=== PATIENT | male | born 1990 | race Caucasian/White ===

== ENCOUNTER 2025-02-20 16:05 | Day surgery (SDC) | payer BC, SELFPAY ==
[2025-02-20] VITALS (9 sets, daily range): BP systolic 136–158; BP diastolic 72–99; BMI 29.7
[2025-02-20 10:36] LABS: % Basophils 0.7 % (0-2); % Eosinophils 0.7 % (0-6); % Immature Granulocytes 0.6 % (0-0.5); % Lymphocytes 19.1 % (20.5-51.1); % Monocytes 10.1 % (1.7-9.3); % Neutrophils 68.8 % (42.2-75.2); Absolute Basophils 0.1 10^3/uL (0-0.2); Absolute Eosinophils 0.1 10^3/uL (0-0.7); Absolute Immature Granulocytes 0.1 10^3/uL (0-0.05); Absolute Lymphocytes 2.2 10^3/uL (1.2-3.4); Absolute Monocytes 1.2 10^3/uL (0.1-0.6); Absolute Neutrophils 7.8 10^3/uL (1.4-6.5); Hemoglobin 14.3 g/dL (13.0-18.0); Mean Corpuscular Hgb 30.4 pg (27.0-31.0); Mean Corpuscular Volume 89.2 fL (80.0-94.0); Mean Platelet Volume 9.8 fL (7.4-10.4); Nucleated Red Blood Cells % 0 % (-); Platelet Count 252 10^3/uL (130-400); Red Blood Cell Count 4.71 10^6/uL (4.70-6.10); Red Cell Dist. Width 11.8 % (11.5-14.5); White Blood Cell Count 11.4 10^3/uL (4.8-10.8)
[2025-02-20 10:58] LABS: ALT (SGPT) 69 U/L (0-50); AST (SGOT) 40 U/L (17-59); Albumin 5.1 g/dl (3.5-5.0); Alkaline Phosphatase 49 U/L (38-126); Blood Urea Nitrogen 11 mg/dl (9-20); Calcium 10.2 mg/dl (8.4-10.2); Carbon Dioxide 27 mmol/L (22-30); Chloride 104 mmol/L (98-107); Glucose 108 mg/dl (70-99); Lipase 76 U/L (23-300); Potassium 4.3 mmol/L (3.5-5.1); Sodium 139 mmol/L (135-145); Total Bilirubin 0.9 mg/dl (0.2-1.3); Total Protein 8.2 g/dl (6.3-8.2); eGFR > 60.00
--- NOTE | 2025-02-20 11:53 | ED.GENMED ---
History of Present Illness
General
Chief Complaint: Abdominal Pain
Source: patient
Exam Limitations: none
Time Seen by Provider: 02/20/25 11:43
History of Present Illness
History of Present Illness:
34yoM with a history of hypertension, IBS, and asthma presenting for evaluation of abdominal pain. Symptoms initially began yesterday. Pain started in the periumbilical region and has since migrated to the right lower quadrant. Pain became severe
overnight. Pain is worse with movement and palpation. He has not taken anything [id number] for his symptoms. He is otherwise asymptomatic and denies any fevers, nausea, vomiting, diarrhea, constipation, dysuria, testicular pain. No
previous abdominal surgeries.
Past History
Past History
ED Past Medical History: Psychiatric
ED Past Surgical History: None
Social History
Tobacco: Smoker
Alcohol: Daily
Drug: None
Employment: Employed
Phy Exam
General Physical Exam
General Presentation: well appearing and no apparent distress
General Skin: warm and dry
General Habitus: normal
General Mental: alert
ENT Exam
ENT Exam: normocephalic
Pulmonary Exam
Pulmonary Exam: no respiratory distress
Gastrointestinal Exam
Gastrointestinal Exam: normal bowel sounds, soft, non distended and other (+Focal tenderness in RLQ. Abdomen soft, non-distended. No rebound or guarding.)
Neurological Exam
Neurological Exam: alert
[place] Coma Scale
Eye Opening: Spontaneous
Verbal Response: Oriented
Motor Response: Obeys Commands
GCS Total Score: 15
Skin Exam
Skin Exam: normal color and warm/dry
Psychiatric Exam
Psychiatric Exam: normal mood/affect
Course
Orders/Labs/Results
Orders:
Orders
02/20/25 Lunch
NPO
Allow oral meds: Yes
Allow clear liquids: No
02/20/25 10:27
Complete Blood Count/With Diff Urgent
Comprehensive Metabolic Panel Urgent
Lipase Urgent
02/20/25 11:53
CT Abd/pelvis W Iv Cont Urgent
Comment:
Reason For Exam: RLQ pain
0.9% Sodium Chloride 1000 ml [Nss] 1,000 ml IV BOLUS
02/20/25 14:45
Piperacillin/Tazo 3.375 Gram [Zosyn] 3.375 gram in 50 ml IV NOW
Sequential Compression Device [Pneumatic Compression Sleeves] As Directed
Type: Knee high
DX Deep Vein Thrombosis Video Routine
02/20/25 15:00
Flush (0.9% Sodium Chloride) [Flush (Nss)] See Dose Instructions IV PER PROTOCOL
02/20/25 15:01
Admit/Transfer Patient As Directed
Co-Sign Provider:
Level of Care: Post Proc/Surg Recovery
Assign to:: Medical/Surgical
Physician / Group: General surgery/Pellini
Diagnosis: acute appendicitis
Reason for Overnight Stay: Standard of Care
PRN Pain Medication Management As Directed
May give lesser potent ordered pain med per pt: Yes
preference::
Protocol:: Medication orders for pain may be administered in a
manner that supports deferring to patient preference
when the pt is:
- Requesting an ordered lesser potent pain medication.
Least to most potent pain medications are defined
as: acetaminophen < NSAID < tramadol < opioids
(morphine, oxycodone, hydromorphone).
- Requesting a lesser dose of the same medication IF
ORDERED.
- Requesting a less intrusive route of administration
if both routes are prescribed by the provider (PO <
IV).
02/20/25 15:02
Code Status As Directed
Resuscitation Status: Full Code
Abnormal Lab Results
02/20/25
10:27
WBC 11.4 H 10^3/uL
(4.8-10.8)
Abs Immat Gran (auto) 0.1 H 10^3/uL
(0-0.05)
Absolute Neuts (auto) 7.8 H 10^3/uL
(1.4-6.5)
Absolute Monos (auto) 1.2 H 10^3/uL
(0.1-0.6)
Immature Gran % 0.6 H %
(0-0.5)
Lymphocytes % 19.1 L %
(20.5-51.1)
Monocytes % 10.1 H %
(1.7-9.3)
Glucose 108 H mg/dl
(70-99)
ALT 69 H U/L
(0-50)
Albumin 5.1 H g/dl
(3.5-5.0)
02/20/25 10:27
02/20/25 10:27
Vital Signs
Initial and Last Documented VS:
Initial Vital Signs
Temp Pulse Resp BP Pulse Ox
98.2 F 75 18 158/97 98
02/20/25 10:23 02/20/25 10:23 02/20/25 10:23 02/20/25 10:23 02/20/25 10:23
Last Documented Vital Signs
Temp Pulse Resp BP Pulse Ox
98.2 F 67 17 150/99 98
02/20/25 10:23 02/20/25 14:01 02/20/25 14:01 02/20/25 14:01 02/20/25 14:01
MDM/Problems Addressed
Differential Diagnosis Includes:
34yoM here with abd pain x 1 day. Started in periumbilical region and migrated to RLQ. No f/c. He is hypertensive with otherwise normal vitals. He is well-appearing no acute distress. There is focal tenderness to McBurney's point on exam. No
signs of peritonitis noted. Differential diagnosis includes but is not limited to: Appendicitis, mesenteric adenitis, epiploic appendagitis, colitis, musculoskeletal, kidney stone
Initial ED plan: Labs obtained in triage. White count 11.4. Remainder labs unremarkable. Will obtain CT abdomen. He declines analgesics.
*Pulse Oximetry
Patient hypoxic: no (98%)
*Critical Care Note
Total Time (30-74mins, 75-104mins- exclusive of procedures): Not Applicable
Update Note
Update Note:
CT confirms acute appendicitis. Case discussed with general surgery and patient admitted for further management.
ED Attending Note
-
Portions of this chart may have been created with voice recognition software.� Occasional wrong word or��sound alike� substitutions may have occurred due to the inherent limitations of voice recognition software.
Discharge Plan
Departure
Patient Disposition: Admit
Date of Disposition: 02/20/25
Time of Disposition: 14:51
Presentation/result/management discussed w/ accepting MD/DO: Dr. Blackwood
Discharge Problem:
Acute appendicitis
Prescriptions:
No Action
glycopyrrolate 1 mg tablet
1 mg PO DAILYPRN PRN (Reason: secretions)
Rx Instructions:
takes up to 8/day
cetirizine 10 mg Tablet
10 mg PO DAILY
Metamucil Packet
1 packet PO BID
Theragen Tablet
1 tab PO DAILY
carbamazepine 200 mg tablet
200 mg PO HS
citalopram 20 mg tablet
20 mg PO DAILY
pantoprazole 40 mg Tablet,Delayed Release (Dr/Ec)
40 mg PO DAILY
trazodone 150 mg tablet
150 mg PO HS
bismuth subsalicylate [Pepto-Bismol] 262 mg/15 mL Suspension
524 mg PO DAILYPRN PRN (Reason: upset stomach)
ibuprofen 200 mg Tablet
400 mg PO DAILYPRN PRN (Reason: mild pain)
lisinopril 2.5 mg tablet
2.5 mg PO DAILY
Referrals:
Usman Garcia DO [Family Provider, [facility]]
Activity Restrictions/Additional Instructions:
�Chidi Blackwood MD [facility] General Surgery
[facility]
[address], [address]
[place] [address]
[phone]
Initial Post-Operative Instructions for Laparoscopic/Robotic Surgery
The incision sites are sealed with a surgical glue dressing.� It is safe to shower at any time after surgery when the glue is dry.� Let shower water run over the incisions and then pat dry.
Glue dressing typically peels off in 2-3 weeks.
Abdominal/incisional pain and discomfort, shoulder/scapular pain, bloating, and mild nausea, as well as bruising/stiffness and swelling at the incision sites are common after surgery.� If felt to be excessive, notify us.
Please start postoperative pain management using over the counter medications such as Tylenol and Ibuprofen, per instructions on the bottle, as long as there are no medical reasons why you cannot take these medications.
Ice the incisions sites for 20 minutes every hour or so to help with postoperative incisional pain and reduce postoperative surgical site swelling.� Take care NOT to get an ice burn on the skin surface.
A warm heating pad is often helpful to alleviate shoulder/scapular back pains after laparoscopic procedures.� This pain typically dissipates 24-72hrs post op.
Resume a regular diet initially with smaller meal sizes for 24-36hrs after surgery if not experiencing postoperative nausea or significant bloating/distention.
Constipation is common following surgery and postoperative narcotic use.� May use a stool softener such as Colace (100 mg 2x day) to prevent constipation
If no BM 24hrs after surgery, recommend starting daily Miralax
If no BM in 24-48hrs after starting Miralax --> recommend then using a dose of magnesium citrate or milk of magnesia with a Senokot tablet to help alleviate post operative constipation as long as there is no nausea/vomiting and passing gas.
Resume all preoperative medications as prescribed, unless directed otherwise.
Do not drive or drink alcohol for 24 hrs after having anesthesia or while taking narcotic pain medications.
Resume regular daily light activities, such as walking, standing and going up/down stairs as tolerated within 24hrs of surgery.� Please refrain from lifting over 15-20 lbs or strenuous exercise until postoperative follow up visit &/or approximately
3-4 weeks.�
Call the office with a fever above 101� F, nausea with vomiting, severe abdominal pain, spreading redness and drainage from incision sites or with any concerns/questions.
Please call the office to schedule your postoperative surgical follow-up office visit.
Interventions
Interventions:
*Risk Screen - Suicide Last Done: 02/20/25 10:23
*General Assessment Last Done: 02/20/25 10:23
*Neglect/Abuse Screening Last Done: 02/20/25 12:10
*ED- Fall Risk Assessment Last Done: 02/20/25 12:10
*ED COVID-19 Vaccine History Last Done: 02/20/25 12:10
MO-Xdnhms-Xokgvsiunr Assessment Last Done: 02/20/25 13:00
Discharge Date and Time
Print Language: TONGAN
[2025-02-20] MEDS: NSS 1000 IV ×2 (12:19→19:27)
--- NOTE | 2025-02-20 14:46 | HPS.HSE ---
Addendum entered and electronically signed by Chidi Blackwood MD 02/20/25 15:16:
Patient seen and examined with surgical DIRECTOR CREDIT RISK. Agree with documented history and physical consistent with my simultaneous examination evaluation.
HPI: 34-year-old male presenting with the acute onset of abdominal pain which over the course of the last day and a half has increased in severity and localized to the right lower quadrant. Anorexia but no nausea or vomiting. Last bowel movement
today. No similar episodes of pain like this in the past.
PMH: Depression, hyperhidrosis, GERD, hypertension PSH: No past abdominal surgical history only wisdom teeth extraction
AFVSS NAD AAO x 3
In emergency department on stretcher resting comfortably. Significant other at bedside.
ABD: Soft, nondistended, tenderness palpation localized in the right lower quadrant with voluntary guarding on deep palpation
CT abdomen/pelvis. Images reviewed as well as radiologist report. Dilated appendix up to 1.1 cm with surrounding inflammatory changes. Few prominent adjacent lymph nodes. No free fluid, no organizing fluid collections, no phlegmonous
inflammatory changes surrounding. Findings consistent with acute appendicitis.
Assessment: 34-year-old male with acute appendicitis.
Reviewed with patient history, examination and CT imaging consistent with acute appendicitis. Discussed both operative and nonoperative management options and associated risks/benefits of approaches. Patient is in agreement to proceed with
appendectomy.
Laparoscopic appendectomy reviewed in detail with the patient. Discussed operative technique utilizing diagrams or drawings, alternative management options, benefits and potential risks such as but not limited to bleeding, infectious or wound
healing complications, iatrogenic injury to surrounding viscera. Discussed the typical postoperative recovery pending operative findings.
Any of the patient's concerns or questions were fully addressed and informed consent was obtained.
Plan: OR for laparoscopic appendectomy.
Empiric antibiotic coverage with Zosyn.
Nothing by mouth, IV fluid hydration and supportive care awaiting operative room availability.
SCDs for DVT prophylaxis
Original Note:
Family Physician
-
Family Physician: Usman Garcia
Chief Complaint
-
rlq pain
History of Present Illness
This is a 34 yo male with a h/o depression, IBS and htn who presented through the ED with RLQ pain. Yesterday, he noted pain beginning in the mid abdomen which then localized to the RLQ. He denies nausea or vomiting but has had a poor appetite and
did not eat any food today. He was able to have a normal BM today. He denies bladder changes. He denies fevers or chills.
Medical History
Past Medical History
Past Medical History: Reports GERD, HTN, Psychiatric (bipolar depression) and Other (hyperhidrosis)
Past Surgical History: Reports Other (Ingram teeth)
Social History
Tobacco: Non-smoker
Alcohol: Occasional (2-3x week)
Family History
Family History: Not pertinent
Allergies / Home Medications
Allergies reflects when Allergies were last updated in [facility].
Home Medications with original date entered in [facility]
Allergy/Medication List:
Patient Allergies
Allergy/AdvReac Type Severity Reaction Status Date / Time
tdap Allergy Rash Uncoded 02/20/25 10:23
Med Rec not yet done: outpatient records show Pantoprazole 40mg po daily, lisinopril 2.5mg daily, trazodone hcl 150mg at bedtime, naltrexone 50mg daily, carbamazepine 200mg po dialy, citalopram hydrobromide 20mg daily, glycopyrrolate 1mg prn
Review of Systems
-
History Source: Patient
A 12 point ROS was completed and negative except as noted: Yes
Physical Exam
Vital Signs
Vital Signs
Temp Pulse Resp BP Pulse Ox
98.2 F 67 17 150/99 98
02/20/25 10:23 02/20/25 14:01 02/20/25 14:01 02/20/25 14:01 02/20/25 14:01
Physical Exam
General: Well Developed and Well Nourished
HEENT: NormoCephalic
Respiratory: Clear and Non Labored Respirations
GI: Soft, Non Distended and Tender (RLQ)
Skin: Warm and Dry
Neuro: Awake, Alert and AO x 3
Psych: Calm
Laboratory Results
-
02/20/25 10:27
02/20/25 10:27
Laboratory Results
Total Bilirubin 0.9 mg/dl (0.2-1.3) 02/20/25 10:27
AST 40 U/L (17-59) 02/20/25 10:27
ALT 69 U/L (0-50) H 02/20/25 10:27
Alkaline Phosphatase 49 U/L (38-126) 02/20/25 10:27
Lipase 76 U/L (23-300) 02/20/25 10:27
Data Reviewed
-
CT Scan: Image Personally Visualized and interpreted, Report Reviewed by me, Discussed with Physician, Discussed with Patient and Discussed with Family
Lab Data: Labs Reviewed by me, Discussed with Physician and Discussed with Family
Old Records: Reviewed
Impression/Plan
-
IMPRESSION:
34 yo male presenting with RLQ pain which began yesterday and has worsened/persisted. No associated fevers/n/v. Afebrile with stable vital signs. Mild leukocytosis. RLQ tender on exam with CT imaging demonstrating acute appendicitis without evidence
of perforation or abscess.
PLAN:
Start IV abx with zosyn
Keep NPO
Analgesics/antiemetics prn
OR later today for laparoscopic appendectomy
SCDs for VTE ppx
[2025-02-20] MEDS: ZOSYN 50 IV (15:03)
--- NOTE | 2025-02-20 16:52 | W.PN.UPDATE ---
Update Note
Progress Note Update
Notified by nursing team, patient reports drinking approx 7-12 mixed drinks almost daily.
Will follow for signs of withdrawal
MSAS protocol initiated with daily folic acid/thiamine
--- NOTE | 2025-02-20 17:19 | W.SUR.PREOP ---
Pre-Operative Surgical Note
-
I have examined this patient prior to the performance of the scheduled procedure.
The patient's condition is unchanged from the time of the current History and
Physical and the patient is able to undergo the scheduled procedure.
--- NOTE | 2025-02-20 18:39 | W.IMMPOSTOP ---
Addendum entered and electronically signed by Chidi Blackwood MD 02/20/25 18:48:
#[id number]
Original Note:
Surgical Immed Post Op Note
-
Primary Surgeon: Chidi Blackwood MD
Assisting Surgeon: None
Pre-op Diagnosis: Acute appendicitis
Post-op Diagnosis: Acute appendicitis
Procedure Performed: Laparoscopic appendectomy
Anesthesia Type: GETA +0.25% Marcaine
Specimen / Cultures: Appendix
Estimated Blood Loss: 4 mL
Complications: None immediate
Operative Findings: Acutely inflamed, indurated and distended appendix. No perforation, no abscess, no purulence. No disruption of appendix with appendectomy.
Okay for discharge postoperatively if pain controlled, ambulating and tolerates p.o. intake
--- NOTE | 2025-02-20 19:30 | PTCARENOTE ---
1645: pt arrived from ED AOX3 lungs CTA-RA, no edema, +pedals, localized RLQ, called for sx at 1715. pt drinks 7-12 drinks 5 days a week of mixed drinks. 20g RAC
== END 2025-02-20 21:15 | disposition home or self-care (01) ==
LOC: SDS 16:05
PROVIDERS: ATTENDING PHYSICIAN Surgery; EMERGENCY PHYSICIAN Emergency Medicine; FAMILY PHYSICIAN Family Medicine
DX: K35.80 Unspecified acute appendicitis (principal)
CPT/HCPCS: 44970; 88304; 74177; 80053; 83690; 85025; 96360; 99285; C1776; Q9967